=== PATIENT | female | born 1970 | race Two or more races ===

== ENCOUNTER 2024-10-01 21:21 | Emergency (ER) | payer MEDICAID, SELFPAY ==
[2024-10-01 21:22] VITALS: BMI 40.6
[2024-10-01 22:38] VITALS: BP 146/89; PULSE 71; RESP 18; TEMP 36.8; O2SAT 97
--- NOTE | 2024-10-01 22:47 | XR_ITS ---
Examination: PA lateral chest 2 views Technique: Upright PA lateral chest 2 views Exam date and time: October 01, 2023 10:55 PM Comparison May 24, 2023 Indications: Onset chest pain today. Findings: Early bibasilar pneumonia Normal heart size The osseous structures are intact Impression: Early bibasilar pneumonia
--- NOTE | 2024-10-01 22:47 | PD.EDRME ---
Rapid Medical Screening Exam E Arrival date/time: 10/01/24 21:21 54-year-old female with past medical history of hypertension and diabetes presents emergency department complaining of right sided chest pain 8 out of 10 that radiates to her right arm for 3 days. Patient reports pain has been progressively getting worse. Chief Complaint: Chest Pain Time Seen by Provider: 10/01/24 22:03 Vital signs: Vital Signs Temperature 98.2 F 10/01/24 22:38 Pulse Rate 71 10/01/24 22:38 Respiratory Rate 18 10/01/24 22:38 Blood Pressure 146/89 H 10/01/24 22:38 Pulse Oximetry (%) 97 10/01/24 22:38 Oxygen Delivery Method Room Air 10/01/24 22:38 Vital signs reviewed by provider: Yes
[2024-10-01 23:05] LABS: Basophils # (Auto) 0.1 Thou/mm3 (0.0-0.2); Basophils % (Auto) 1 % (0-2.5); Eosinophils # (Auto) 0.4 Thou/mm3 (0.0-0.5); Eosinophils % (Auto) 5 % (0-10); Hematocrit 40.7 % (36.0-46.0); Hemoglobin 13.6 g/dL (12.0-16.0); Immature Granulocytes % (Auto) 0 % (0-0); Immature Granulocytes Auto 0.02 Thou/mm3 (0.00-0.00); Lymphocytes # (Auto) 1.9 Thou/mm3 (1.0-4.8); Lymphocytes % (Auto) 27 % (10-50); Mean Corpuscular HGB Conc 33.4 g/dl (31.0-37.0); Mean Corpuscular Hemoglobin 27.6 pg (25.0-35.0); Mean Corpuscular Volume 83 fL (80-100); Monocytes # (Auto) 0.5 Thou/mm3 (0.0-0.8); Monocytes % (Auto) 7 % (0-12); Neutrophils # (Auto) 4.3 Thou/mm3 (1.8-7.7); Neutrophils % (Auto) 60 % (37-80); Nucleated Red Blood Cell % 0 /100 WBC (0); Platelet Count 283 Thou/mm3 (140-440); RDW Standard Deviation 46.5 fL (36.4-46.3); Red Blood Count 4.93 Miln/mm3 (4.00-5.20); White Blood Count 7.1 Thou/mm3 (3.6-11.0)
[2024-10-01 23:18] LABS: Prothrombin Time 10.9 Seconds (9.0-12.2)
[2024-10-01 23:22] LABS: B-Type Natriuretic Peptide < 20 pg/mL (0-100)
[2024-10-01 23:24] LABS: Alanine Aminotransferase 23 U/L (10-49); Albumin, Serum 4.4 gm/dL (3.5-5.0); Albumin/Globulin Ratio 1.6 (1.2-2.2); Alkaline Phosphatase 77 U/L (46-116); Anion Gap 7 (7-16); Aspartate Amino Transferase 23 U/L (0-34); BUN/Creatinine Ratio 27 Ratio (12-20); Bilirubin,Total 0.4 mg/dL (0.3-1.2); Blood Urea Nitrogen 19 mg/dL (9-23); Calcium 10.2 mg/dL (8.3-10.6); Calcium (Corrected) 10.2 mg/dL (8.5-10.1); Carbon Dioxide 29.1 mMol/L (20.0-31.0); Chloride 106 mMol/L (98-107); Creatinine (Component) 0.7 mg/dL (0.6-1.3); Globulin 2.8 gm/dL (2.3-3.5); Glucose 92 mg/dL (74-106); Osmolality,Calculated 285 (275-295); Potassium 4.2 mMol/L (3.4-5.1); Sodium 142 mMol/L (136-145); Total Protein 7.2 gm/dL (5.7-8.2); Troponin I < 0.020 ng/mL (0.0-0.045); eGFR > 60 See Note
[2024-10-01 23:42] LABS: Collection Type, Urine Clean Catch
[2024-10-01 23:56] LABS: Bacteria,Urine Rare; Bilirubin,Urine Negative (Negative); Blood,Urine 1+ (Negative); Clarity,Urine Clear (Clear/Hazy); Color,Urine Lt-Yellow (Lt Yel-Yel); Glucose, Urine Negative (Negative); Ketones,Urine Negative (Negative); Leukocyte Esterase,Urine Positive (Negative); Nitrite,Urine Negative (Negative); Protein,Urine Trace (Neg - Trace); RBC,Urine 11 /hpf (0-3); Specific Gravity,Urine 1.024 (1.001-1.035); Squamous Epithelial Cell,Urine 4 /hpf (0-5); Urobilinogen,Urine Negative mg/dL (0.0-1.0); WBC,Urine 76 /hpf (0-5)
[2024-10-02] LABS: Amphetamine/Methamp Scrn,U Negative (Negative); Barbiturate Screen,Urine Negative (Negative); Benzodiazepines Screen,Urine Negative (Negative); Benzoylecgonine Screen, Ur Negative (Negative); Fentanyl Screen,Urine Negative (Negative); Opiate Screen,Urine Negative (Negative); THC Screen,Urine Negative (Negative)
[2024-10-02 02:27] LABS: Troponin I < 0.020 ng/mL (0.0-0.045)
--- NOTE | 2024-10-02 03:09 | EDNOTE_ITS ---
ED Chest Pain RME/HPI General Chief Complaint: Chest Pain Stated Complaint: CHEST PAIN RADIATES TO RIGHT ARM Time Seen by Provider: 10/01/24 22:03 Arrival date/time: 10/01/24 21:21 54-year-old female with past medical history of hypertension and diabetes presents emergency department complaining of right sided chest pain 8 out of 10 that radiates to her right arm for 3 days. Patient reports pain has been progressively getting worse. Patient denies any other associated symptoms. Mode of arrival: ambulatory Limitations: no limitations RME / HPI RME / HPI narrative: 10/01/24 21:21 54-year-old female with past medical history of hypertension and diabetes presents emergency department complaining of right sided chest pain 8 out of 10 that radiates to her right arm for 3 days. Patient reports pain has been progressively getting worse. Related Data Home Medications ?Medication ?Instructions ?Recorded ?Confirmed ferrous sulfate 325 mg (65 mg 325 mg PO BID 09/17/22 01/15/23 iron) tablet Previous Rx's ?Medication ?Instructions ?Recorded albuterol sulfate 90 mcg/actuation 2 inh inhalation Q4H PRN shortness 09/06/21 breath activated powder inhaler of breath or wheezing #1 ea calcium polycarbophil 625 mg 1,250 mg (2 x 625 mg) PO BID #30 10/02/22 tablet (Fiber-Lax) tabs hydrocortisone acetate 25 mg 25 mg [place] BID #24 ea 10/02/22 rectal suppository (Anusol-HC) hydrocortisone acetate 25 mg 25 mg [place] QDAY #12 ea 10/25/22 rectal suppository (Anucort-HC) meclizine 25 mg tablet 25 mg PO QDAY PRN dizziness #14 10/25/22 tabs hydrocodone 5 mg-acetaminophen 325 1 tab PO Q6H PRN pain #7 tabs 12/02/22 mg tablet furosemide 40 mg tablet 40 mg PO QAM #5 tabs 03/15/23 amoxicillin 875 mg-potassium 1 tab PO BID 5 days #10 tabs 10/02/24 clavulanate 125 mg tablet azithromycin 250 mg tablet See Rx Instructions PO .COMPLEX #6 10/02/24 tabs Allergies Allergy/AdvReac Type Severity Reaction Status Date / Time No Known Allergies Allergy Verified 07/08/24 23:48 Review of Systems Review of Systems Systems Reviewed: All systems reviewed, normal except as documented Constitutional Constitutional: Reports system reviewed and no additional complaints, except as documented, Denies body ache(s), Denies chills and Denies fever(s) Eyes Eyes: Reports system reviewed and no additional complaints, except as documented and Denies change in vision ENT Ears, Nose, Mouth, and Throat: Reports system reviewed and no additional complaints, except as documented, Denies disequilibrium, Denies dizziness, Denies sore throat and Denies vertigo Cardiovascular Cardiovascular: Reports system reviewed and no additional complaints, except as documented, Reports chest pain and Denies dyspnea Respiratory Respiratory: Reports system reviewed and no additional complaints, except as documented, Denies chest congestion, Denies cough and Denies dyspnea Gastrointestinal Gastrointestinal: Reports system reviewed and no additional complaints, except as documented, Denies abdominal pain, Denies nausea and Denies vomiting Musculoskeletal Musculoskeletal: Reports system reviewed and no additional complaints, except as documented, Denies abnormal gait and Denies arthralgias Integumentary/Breasts Skin/Breast: Reports system reviewed and no additional complaints, except as documented, Denies erythema, Denies rash and Denies wounds Neurologic Neurologic: Reports system reviewed and no additional complaints, except as documented, Denies abnormal gait, Denies disequilibrium, Denies dizziness and Denies vertigo Past Medical History Past Medical History NEUROLOGIC: Negative Neurological Disorders or Seizures CARDIAC: Positive Hypertension; Negative Cardiac Disorders or Congestive Heart Failure RESPIRATORY: Positive Asthma; Negative Chronic Obstructive Pulmonary Disease (COPD) GASTROINTESTINAL: Negative Gastrointestinal Disorders GENITOURINARY: Negative Genitourinary Disorders or Renal Disease REPRODUCTIVE: Positive Previous Pregnancies; Negative Pelvic Inflammatory Disease MUSCULOSKELETAL: Positive Musculoskeletal Disorders and Arthritis ENDOCRINE: Positive Endocrine Disorders and Diabetes Mellitus Type 2; Negative Diabetes Mellitus Type 1 HEMATOLOGIC: Positive Anemia; Negative Blood Disorders or Sickle Cell Disease OTHER HISTORY: Positive Falls, Chicken Pox, Measles and Mumps; Negative Hospitalization, Autoimmune Disease, Down Syndrome, Developmental Delay, Blood Transfusions, Blood Transfusion Reaction, Anesthesia Reactions or Cancer Family History FAMILY HISTORY: Positive Family Cancer; Negative Family Psychiatric Problems, Family Respiratory Disorders, Family Cardiac Disorders or Family Gastrointestinal Problems Surgical History SURGICAL: Positive Joint Replacement and Section Social History SMOKING STATUS: Never smoker SECOND HAND EXPOSURE: No SUBSTANCE USE: does not use ED Exam General Limitations: Present no limitations General appearance: Present alert and in no apparent distress Head Head exam: Present atraumatic Eye Eye exam: Present normal appearance, PERRL and EOMI ENT ENT exam: Present normal exam, normal oropharynx and mucous membranes moist Neck Neck exam: Present normal inspection, full ROM and trachea midline Chest Chest inspection: Present normal inspection and symmetric chest wall rise Respiratory Respiratory exam: Present normal lung sounds bilaterally Cardiovascular Cardiovascular exam: Present regular rate, normal rhythm and normal heart sounds Abdominal Exam Abdominal exam: Present soft and normal bowel sounds Extremities Exam Extremities exam: Present normal inspection and full ROM Back Exam Back exam: Present normal inspection and full ROM Neurological Exam Neurological exam: Present alert, oriented X3 and CN II-XII intact Psychiatric Psychiatric exam: Present normal affect and normal mood Skin Skin exam: Present warm, dry, intact and normal color Course Quality Measures none Orders Category Date Time Status EKG (ED ONLY) *Do not use* NOW Care 10/01/24 21:25 Completed EKG (ED Only) Stat Exams 10/01/24 21:25 Ordered XR chest 2V Stat Exams 10/01/24 22:47 Completed B-Type Natriuretic Peptide Stat Lab 10/01/24 22:54 Completed CBC Stat Lab 10/01/24 22:54 Completed Comprehensive Metabolic Panel Stat Lab 10/01/24 22:54 Completed Drug Screen,Urine Stat Lab 10/01/24 23:36 Completed Magnesium Stat Lab 10/01/24 22:54 Completed Partial Thromboplastin Time Stat Lab 10/01/24 22:54 Completed Prothrombin Time with INR Stat Lab 10/01/24 22:54 Completed Troponin I Stat Lab 10/01/24 22:54 Completed Troponin I Stat Lab 10/02/24 02:00 Completed Urinalysis Stat Lab 10/01/24 23:36 Completed Ketorolac Inj [Toradol Inj] Med 10/02/24 03:04 Discontinued 30 mg IM X1 ONE Vital Signs Vital signs: Vital Signs Temperature 98.2 F 10/01/24 22:38 Pulse Rate 71 10/01/24 22:38 Respiratory Rate 18 10/01/24 22:38 Blood Pressure 146/89 H 10/01/24 22:38 Pulse Oximetry (%) 97 10/01/24 22:38 Oxygen Delivery Method Room Air 10/01/24 22:38 97% room air within normal limits Procedures -ED EKG Interpretation #1: Date of EK10/01/24 Time of EK:41 Rate: 71 Interpretation: Interpreted by me EKG Impression: Normal sinus rhythm, No acute ST-T changes, No ectopy, No ischemic changes and Normal QRS Chest Pain MDM Narrative MDM Narrative:: 54-year-old female with past medical history of hypertension and diabetes presents emergency department complaining of right sided chest pain 8 out of 10 that radiates to her right arm for 3 days. Patient reports pain has been progressively getting worse. Patient denies any other associated symptoms. CBC was unremarkable for any leukocytosis. CMP was unremarkable for any elevated LFTs or gross electrolyte abnormalities. EKG sinus rhythm with normal troponins x 2. Chest x-ray findings suspicious bibasilar pneumonia. Will treat with antibiotic. Urinalysis does have leukocytosis, RBCs, and WBCs but patient is asymptomatic will instruct to have repeat urinalysis in office at follow-up with primary care provider. Patient data External records reviewed:: [facility] previous records Clinical information provided by:: patient Social determinants that could affect healthcare access:: none Patient has the following chronic illnesses:: See chart How is presenting disease/condition affected by chronic disease/condition?: uneffected by Evaluation data The following diagnostics were reviewed and interpreted by me:: lab results, radiology exam(s) and EKG tracing(s) Lab and/or radiology exams considered but not ordered:: Ordered Interpretation Summary: Interpreted by me Medications / Prescriptions Medications or Prescriptions considered but not ordered:: Ordered Medication administrations:: Medication Administration History Discontinued Medications Ketorolac Tromethamine (Ketorolac Inj 60 Mg/2 Ml Vial) 30 mg IM X1 ONE Stop: 10/02/24 03:05 Given Consultations Consultation(s) initiated? (list below): No Diagnosis Chest Pain Differential Diagnosis: fracture of rib, pneumothorax, stable angina, unstable angina pectoris, atypical chest pain, st elevation myocardial infarction, costochondritis, chest pain and biliary colic Most likely diagnosis given after review of the tests above:: Community-acquired ammonia Admission Indicated Admission indicated?: not indicated Admission Request Was there a request for admission?: No Disposition Plan Disposition Plan: Discharge Discharge Attestation Discharge Attestation: The patient and all family members were given an opportunity to ask questions and understood the discharge instructions. Discharge instructions specifically effects, indications for sooner follow up or return to the emergency department, and the expected course of current diagnosis. Patient condition: Stable Discharge Plan Plan Patient Disposition: HOME (Self Care) Disposition Comment: Stable Prescriptions/Referrals Prescriptions/Med Rec: New azithromycin 250 mg tablet See Rx Instructions .ROUTE .COMPLEX Qty: 6 0RF Rx Instructions: For 250 mg dose pack: take 500 mg today (day 1), then 250 mg for 4 days (days 2-5) amoxicillin-pot clavulanate 875-125 mg tablet 1 tab PO BID 5 Days Qty: 10 0RF No Action albuterol sulfate 90 mcg/actuation aerosol powdr breath activated 2 inh inhalation Q4H PRN (Reason: shortness of breath or wheezing) Qty: 1 1RF ferrous sulfate 325 mg (65 mg iron) Tablet 325 mg PO BID hydrocortisone acetate [Anucort-HC] 25 mg suppository 25 mg [place] QDAY Qty: 12 1RF meclizine 25 mg tablet 25 mg PO QDAY PRN (Reason: dizziness) Qty: 14 0RF calcium polycarbophil [Fiber-Lax] 625 mg tablet 1,250 mg PO BID Qty: 30 0RF hydrocortisone acetate [Anusol-HC] 25 mg suppository 25 mg [place] BID Qty: 24 0RF hydrocodone-acetaminophen 5-325 mg tablet 1 tab PO Q6H MDD 3 PRN (Reason: pain) Qty: 7 0RF furosemide 40 mg tablet 40 mg PO QAM Qty: 5 0RF Referrals: No Primary/Family,Physician [Primary Care Provider] - In 1 week Problem List Clinical Impression: Community acquired pneumonia Patient/Caregiver Discharge Instructions Discharge Activity: activity as tolerated Education Materials: ED Pneumonia (Adult) Additional Instructions: Drink plenty of fluids and get plenty of rest. Take antibiotics as prescribed. Follow-up with primary care provider in 2 to 3 days and have repeat urinalysis in office. Return to emergency department for any worsening symptoms or as needed. Print Language: Citizen Of [place] Stand Alone Forms: Susannah Award Info., Patient Portal Info Letter PA/AUTO MECHANIC APPRENTICE Supervising Physician PA/AUTO MECHANIC APPRENTICE Supervising Physician: Dr. Srinivasan
[2024-10-02] MEDS: KETOROLAC INJ 60 MG/2 ML VIAL 30 MG IM (03:32)
[2024-10-02 03:35] VITALS: BP 138/76; PULSE 76; RESP 18; TEMP 36.7; O2SAT 97
== END 2024-10-02 03:36 | disposition home or self-care (01) ==
PROVIDERS: Emergency Provider Emergency Medicine
DX: J18.9 Pneumonia, unspecified organism (principal); I10 Essential (primary) hypertension; E11.9 Type 2 diabetes mellitus without complications
CPT/HCPCS: 36415; 71046; 80053; 80307; 81001; 83735; 83880; 84484; 85025; 85610; 85730; 93005; 96372; 99283; J1885

== ENCOUNTER → 2025-01-26 | Outpatient (CLI) | payer MEDICAID, SELFPAY ==
--- NOTE | 2025-01-26 09:00 | XR_ITS ---
Examination: Breast ultrasound complete, bilateral Date and time of exam: January 26, 2025 0835 hours INDICATIONS: Bilateral breast pain beginning 3 months ago, family history breast cancer Technique: Real-time grayscale ultrasonographic imaging bilateral breasts, including all 4 quadrants as well as nipple retroareolar and axillary regions. Findings: Sonographic images were breast 10:00 cyst 4 x 3 mm 10:00 cyst 4 x 4 millimeter No solid nodules Sonographic images left breast 3:00 cyst 5 x 4 mm 9:00 nodule circumscribed 4 x 3 mm IMPRESSION: Category 3: Probably benign findings One additional 6 month left breast sonogram follow-up is needed to document stability of 9:00 nodule left breast described above
--- NOTE | 2025-01-26 10:00 | XR_ITS ---
Examination: Diagnostic digital mammography, bilateral Computer aided detection 3-D breast Tomosynthesis, bilateral Date and time of exam: January 26, 2025 0859 hours Comparison April 29, 2012 INDICATIONS: Worsening bilateral breast pain beginning 3 months ago, family history, mother breast cancer Technique: Nonmagnified MLO, CC views of the breasts to been obtained, reconstructed from 3-D Tomosynthesis images. R2 computer aided detection program utilized for evaluation of suspicious masses and/or abnormal calcifications. 3-D Tomosynthesis images obtained. Findings: Scattered areas of fibroglandular density. Benign calcifications 3 mm circumscribed nodule upper left breast on the MLO view Impression: BI-RADS Category 3: Probably benign findings Recommend 1 additional 6 month left mammogram follow-up to document stability of 3 mm circumscribed nodule upper left breast on the MLO view.
== END | disposition home or self-care (01) ==
PROVIDERS: PCP Behavior Technician; Referring Provider Nurse Practitioner Family; Visit Provider Nurse Practitioner Family
DX: N63.20 Unspecified lump in the left breast, unspecified quadrant (principal); Z80.3 Family history of malignant neoplasm of breast; N63.25 Unspecified lump in the left breast, overlapping quadrants
CPT/HCPCS: 76641; 77062; 77066; G0279

== ENCOUNTER 2025-09-07 08:08 | Emergency (ER) | payer MEDICAID, SELFPAY ==
[2025-09-07 08:09] VITALS: BMI 40.8
[2025-09-07 08:17] VITALS: BP 139/88; PULSE 84; RESP 18; TEMP 36.8; O2SAT 95
--- NOTE | 2025-09-07 08:27 | EDNOTE_ITS ---
ED Headache RME/HPI General Chief Complaint: Headache Stated Complaint: HEADACHE X3 DAYS, L FACIAL PAIN SINCE LAST NIGHT Time Seen by Provider: 09/07/25 08:11 Source: patient Arrival date/time: 09/07/25 08:08 55-year-old female with no known medical history presents to the emergency room with a chief complaint of a left-sided 6 out of 10 headache x 3 days Mode of arrival: ambulatory Limitations: no limitations Related Data Home Medications ?Medication ?Instructions ?Recorded ?Confirmed ferrous sulfate 325 mg (65 mg 325 mg PO BID 09/17/22 0 01/15/23 iron) tablet Previous Rx's ?Medication ?Instructions ?Recorded albuterol sulfate 90 mcg/actuation 2 inh inhalation Q4 H PRN shortness 09/06/21 breath activated powder inhaler of breath or wheezing #1 ea calcium polycarbophil 625 mg 1,250 mg (2 x 625 mg) PO BID #30 10/02/22 tablet (Fiber-Lax) tabs hydrocortisone acetate 25 mg 25 mg WI BID #24 ea 10/02 rectal suppository (Anusol-HC) hydrocortisone acetate 25 mg 25 mg WI QDAY #12 ea 10/14 11/05 rectal suppository (Anucort-HC) meclizine 25 mg tablet 25 mg PO QDAY PRN dizziness #14 10/25/22 tabs hydrocodone 5 mg-acetaminophen 325 1 tab PO Q6H PRN pa in #7 tabs 12/02/22 mg tablet furosemide 40 mg tablet 40 mg PO QAM #5 tabs 3 azithromycin 250 mg tablet See Rx Instructions PO .COM PLEX #6 10/02/24 tabs Allergies Allergy/AdvReac Type Severity Reaction Status Date / Time No Known Allergies Allergy Verified 09/07/25 08:11 Review of Systems Review of Systems Systems Reviewed: All systems reviewed, normal except as documented Constitutional Constitutional: Reports system reviewed and no additional complaints, except as documented, Denies fatigue, Denies fever(s), Reports headache(s) and Denies weakness Eyes Eyes: Reports system reviewed and no additional complaints, except as documented, Denies blurry vision and Denies change in vision ENT Ears, Nose, Mouth, and Throat: Reports system reviewed and no additional complaints, except as documented, Denies otalgia, Reports headache(s), Denies nasal congestion, Denies throat swelling and Denies vertigo Cardiovascular Cardiovascular: Reports system reviewed and no additional complaints, except as documented, Denies chest pain, Denies dyspnea and Denies dyspnea on exertion Respiratory Respiratory: Reports system reviewed and no additional complaints, except as documented, Denies chest congestion, Denies cough, Denies dyspnea, Denies dyspnea on exertion and Denies wheezing Gastrointestinal Gastrointestinal: Reports system reviewed and no additional complaints, except as documented, Denies abdominal pain, Denies cramping, Denies nausea and Denies vomiting Genitourinary Genitourinary: Reports system reviewed and no additional complaints, except as documented Musculoskeletal Musculoskeletal: Reports system reviewed and no additional complaints, except as documented and Denies back pain Integumentary/Breasts Skin/Breast: Reports system reviewed and no additional complaints, except as documented and Denies wounds Neurologic Neurologic: Reports system reviewed and no additional complaints, except as documented, Denies confusion, Reports headache(s), Denies lack of coordination, Denies vertigo and Denies weakness Psychiatric Psychiatric: Reports system reviewed and no additional complaints, except as documented, Denies anxiety, Denies confusion, Denies depression, Denies paranoia, Denies suicidal ideation and Denies tactile hallucinations Endocrine Endocrine: Reports system reviewed and no additional complaints, except as documented and Denies fatigue Hematologic/Lymphatic Hematologic/Lymphatic: Reports system reviewed and no additional complaints, except as documented and Denies lymphadenopathy Allergic/Immunologic Allergic/Immunologic: Reports system reviewed and no additional complaints, except as documented, Denies throat swelling, Denies urticaria and Denies wheezing Past Medical History Past Medical History NEUROLOGIC: Negative Neurological Disorders or Seizures CARDIAC: Positive Hypertension; Negative Cardiac Disorders or Congestive Heart Failure RESPIRATORY: Positive Asthma; Negative Chronic Obstructive Pulmonary Disease (COPD) GASTROINTESTINAL: Negative Gastrointestinal Disorders GENITOURINARY: Negative Genitourinary Disorders or Renal Disease REPRODUCTIVE: Positive Previous Pregnancies; Negative Pelvic Inflammatory Disease MUSCULOSKELETAL: Positive Musculoskeletal Disorders and Arthritis ENDOCRINE: Positive Endocrine Disorders and Diabetes Mellitus Type 2; Negative Diabetes Mellitus Type 1 HEMATOLOGIC: Positive Anemia; Negative Blood Disorders or Sickle Cell Disease OTHER HISTORY: Positive Falls, Chicken Pox, Measles and Mumps; Negative Hospitalization, Autoimmune Disease, Down Syndrome, Developmental Delay, Blood Transfusions, Blood Transfusion Reaction, Anesthesia Reactions or Cancer Family History FAMILY HISTORY: Positive Family Cancer; Negative Family Psychiatric Problems, Family Respiratory Disorders, Family Cardiac Disorders or Family Gastrointestinal Problems Surgical History SURGICAL: Positive Joint Replacement and Section Social History SMOKING STATUS: Never smoker SECOND HAND EXPOSURE: No SUBSTANCE USE: does not use ED Exam General Limitations: Present no limitations General appearance: Present alert and in no apparent distress Head Head exam: Present atraumatic Eye Eye exam: Present normal appearance, PERRL and EOMI ENT ENT exam: Present normal exam, normal oropharynx and mucous membranes moist Neck Neck exam: Present normal inspection, full ROM and trachea midline Chest Chest inspection: Present normal inspection and symmetric chest wall rise Respiratory Respiratory exam: Present normal lung sounds bilaterally Cardiovascular Cardiovascular exam: Present regular rate, normal rhythm and normal heart sounds Abdominal Exam Abdominal exam: Present soft and normal bowel sounds Extremities Exam Extremities exam: Present normal inspection and full ROM Back Exam Back exam: Present normal inspection and full ROM Neurological Exam Neurological exam: Present alert, oriented X3, CN II-XII intact, normal gait and reflexes normal; Absent motor sensory deficit Expanded Neurological Exam Patient oriented to: Present person, place and time Speech: Present fluid speech Cranial nerves: Normal: EOM function (II, III, IV, ), facial sensation (V) and facial palsy (VII) Cerebellar function: Normal: finger to nose Cerebellar function: Present normal gait Motor strength - LUE: 5/5 Motor strength - RUE: 5/5 Motor strength - LLE: 5/5 Motor strength - RLE: 5/5 Coma scale eye opening: spontaneous Coma scale motor response: obeys commands Coma scale verbal response: oriented Coma scale total: 15 Psychiatric Psychiatric exam: Present normal affect and normal mood Skin Skin exam: Present warm, dry, intact and normal color Course Quality Measures none Orders Category Date Time Status CT head/brain wo con Stat Exams 09/07/25 10:04 Completed DiphenhydrAMINE [Benadryl] Med 09/07/25 08:25 Discontinued 25 mg PO X1 ONE Ketorolac Inj [Toradol Inj] Med 09/07/25 08:25 Discontinued 30 mg IM X1 ONE Metoclopramide [Reglan] Med 09/07/25 08:25 Discontinued 10 mg PO X1 ONE Vital Signs Vital signs: Vital Signs Temperature 98.3 F 09/07/25 08:17 Pulse Rate 84 09/07/25 08:17 Respiratory Rate 18 09/07/25 08:17 Blood Pressure 139/88 H 09/07/25 08:17 Pulse Oximetry (%) 95 09/07/25 08:17 Oxygen Delivery Method Room Air 09/07/25 08:17 Headache MDM Narrative MDM Narrative:: 55-year-old female with no known medical history presents to the emergency room with a chief complaint of a left-sided 6 out of 10 headache x 3 days Patient is hemodynamically stable and in no apparent distress Physical examination shows a normal neurological exam. There are no focal neurological deficits. The patient is a GCS of 15 she is alert and oriented x 3 pupils are PERRLA EOMs are intact there is no facial asymmetry. There is no slurred speech or any facial droop. Patient has a normal steady gait and is able to ambulate with no difficulties. Patient states her headache is a 6 out of 10 but gets better when she takes ibuprofen at home. The patient denies any trauma or injury to the head. During reevaluation the patient states her headache is still there and has not gotten any better with medication. A CT of the head and brain was completed and was negative for any acute findings Patient was discharged and educated to follow-up with primary care provider in the next 24 to 48 hours and return to the emergency room for any evidence of worsening signs or symptoms Patient data External records reviewed:: [facility] previous records Clinical information provided by:: patient Social determinants that could affect healthcare access:: none Patient has the following chronic illnesses:: No chronic illness How is presenting disease/condition affected by chronic disease/condition?: no chronic disease Evaluation data The following diagnostics were reviewed and interpreted by me:: lab results and radiology exam(s) Lab and/or radiology exams considered but not ordered:: Labs and radiology exams considered and Interpretation Summary: N/A Medications / Prescriptions Medications or Prescriptions considered but not ordered:: Medication given Medication administrations:: Medication Administration History Discontinued Medications Diphenhydramine HCl (Diphenhydramine 25 Mg Capsule) 25 mg PO X1 ONE Stop: 09/07/25 08:26 Last Admin: 09/07/25 09:11 Dose: 25 mg Documented By: Ketorolac Tromethamine (Ketorolac Inj 60 Mg/2 Ml Vial) 30 mg IM X1 ONE Stop: 09/07/25 08:26 Last Admin: 09/07/25 09:13 Dose: 30 mg Documented By: Metoclopramide HCl (Metoclopramide 5 Mg Tablet) 10 mg PO X1 ONE Stop: 09/07/25 08:26 Last Admin: 09/07/25 09:11 Dose: 10 mg Documented By: Medication given Consultations Consultation(s) initiated? (list below): No Diagnosis Differential diagnosis headache: migraine, tension headache, subarachnoid hemorrhage and headache Most likely diagnosis given after review of the tests above:: Headache Admission Indicated Admission indicated?: not indicated Admission Request Was there a request for admission?: No Disposition Plan Disposition Plan: Discharge Discharge Attestation Discharge Attestation: The patient and all family members were given an opportunity to ask questions and understood the discharge instructions. Discharge instructions specifically effects, indications for sooner follow up or return to the emergency department, and the expected course of current diagnosis. Patient condition: Stable Discharge Plan Plan Patient Disposition: HOME (Self Care) Discharge Disposition comment: Stable Prescriptions/Referrals Prescriptions/Med Rec: No Action albuterol sulfate 90 mcg/actuation aerosol powdr breath activated 2 inh inhalation Q4H PRN (Reason: shortness of breath or wheezing) Qty: 1 1RF ferrous sulfate 325 mg (65 mg iron) Tablet 325 mg PO BID hydrocortisone acetate [Anucort-HC] 25 mg suppository 25 mg WI QDAY Qty: 12 1RF meclizine 25 mg tablet 25 mg PO QDAY PRN (Reason: dizziness) Qty: 14 0RF calcium polycarbophil [Fiber-Lax] 625 mg tablet 1,250 mg PO BID Qty: 30 0RF hydrocortisone acetate [Anusol-HC] 25 mg suppository 25 mg WI BID Qty: 24 0RF hydrocodone-acetaminophen 5-325 mg tablet 1 tab PO Q6H MDD 3 PRN (Reason: pain) Qty: 7 0RF furosemide 40 mg tablet 40 mg PO QAM Qty: 5 0RF azithromycin 250 mg tablet See Rx Instructions .ROUTE .COMPLEX Qty: 6 0RF Rx Instructions: For 250 mg dose pack: take 500 mg today (day 1), then 250 mg for 4 days (days 2-5) Referrals: No Primary/Family,Physician [Primary Care Provider] - In 1 week Problem List Clinical Impression: Headache Patient/Caregiver Discharge Instructions Education Materials: Self-Care for Headaches Additional Instructions: Please follow-up with your primary care provider in the next [address] of your head and brain was completed and was negative for any acute findings For any evidence of worsening signs or symptoms return to emergency room immediately Print Language: Nepali Stand Alone Forms: Susannah Award Info., Work/School Release, Patient Portal Info Letter PA/BOARD CERTIFIED ORTHODONTIST Supervising Physician PA/BOARD CERTIFIED ORTHODONTIST Supervising Physician: Dr. Goldberg
[2025-09-07] MEDS: METOCLOPRAMIDE 5 MG TABLET 10 MG PO (09:11)
[2025-09-07] MEDS: KETOROLAC INJ 60 MG/2 ML VIAL 30 MG IM (09:13)
--- NOTE | 2025-09-07 10:04 | XR_ITS ---
Examination: CT brain head without contrast. 2-D sagittal coronal reconstructions Date and time of exam: 09/07/2025 at 11:11 a.m. CTDI: vol (mGy): 51.5 DLP: (mGycm): 1000 Technique: Multiple CT axial sections of the brain have been obtained, 5 mm slice thickness. Contrast has not been administered. 2-D sagittal, coronal reconstructions have been obtained Low dose protocols were performed. One or more of the following dose reduction techniques were used; automated exposure control, adjustment of the mA and/or KV according to patient size, use of iterative reconstruction technique. Findings: There is very minimal enlarged of both lateral ventricles. Third ventricle and fourth ventricle appear normal. . Intra-axial or extra-axial hemorrhage density is not seen. No mass effect or midline shift Basal cisterns are not remarkable. Fourth ventricle is midline. Cranial vault intact. Impression: Negative for acute hemorrhage, mass effect or midline shift
== END 2025-09-07 13:25 | disposition home or self-care (01) ==
PROVIDERS: Emergency Provider Emergency Medicine
DX: R51.9 Headache, unspecified (principal)
CPT/HCPCS: 70450; 96372; 99283; J1885; A9270